=== PATIENT | female | born 1995 | race African-American/Black ===

== ENCOUNTER 2018-11-03 06:57 | Emergency (ER) | payer OTHER ==
[~2018-11-03] VITALS: Ht 160 cm; Wt 108.9 kg
[2018-11-03 07:00] VITALS: BP 132/75
[2018-11-03] MEDS ORDERED: Isovue-300 100ml vial INJ PRN (07:30)
[2018-11-03] MEDS ORDERED: Morphine Sulfate 4mg/ml Inj (IV/IM USE ONLY) IVP ONE (07:30)
[2018-11-03 07:45] LABS: BASOPHILS % (AUTO) 0.5 % (0.0-2.0); EOSINOPHILS % (AUTO) 0.7 % (0.0-3.0); HEMATOCRIT 34.6 % (37.0-47.0); HEMOGLOBIN 10.8 G/DL (12.0-16.0); LYMPHOCYTES % (AUTO) 14.4 % (20.0-45.0); MEAN CORPUSCULAR VOLUME 72 FL (80-99); MONOCYTES % (AUTO) 3.7 % (1.0-10.0); NEUTROPHILS % (AUTO) 80.8 % (45.0-75.0); PLATELET COUNT 443 K/UL (150-450); RED BLOOD COUNT 4.84 M/UL (4.20-5.40); RED CELL DISTRIBUTION WIDTH 15.9 % (11.6-14.8); WHITE BLOOD COUNT 10.1 K/UL (4.8-10.8)
[2018-11-03 07:47] LABS: APPEARANCE,URINE SLIGHTLY CLOUDY; BILIRUBIN, URINE NEGATIVE (NEGATIVE); GLUCOSE, URINE (UA) 1+ (NEGATIVE); KETONES,URINE 1+ (NEGATIVE); LEUKOCYTE ESTERASE ,URINE 3+ (NEGATIVE); NITRITE,URINE NEGATIVE (NEGATIVE); PH,URINE 6 (4.5-8.0); PROTEIN,URINE 1+ (NEGATIVE); UROBILINOGEN,URINE NORMAL MG/DL (0.0-1.0)
[2018-11-03 07:48] LABS: ANION GAP 9 mmol/L (5-15); BLOOD UREA NITROGEN 7 mg/dL (7-18); CALCIUM 9.2 MG/DL (8.5-10.1); CARBON DIOXIDE 26 MMOL/L (21-32); CHLORIDE 102 MMOL/L (98-107); CREATININE 0.9 MG/DL (0.55-1.30); POTASSIUM 3.5 MMOL/L (3.5-5.1); SODIUM 137 MMOL/L (136-145)
[2018-11-03 07:51] LABS: COLOR,URINE YELLOW
[2018-11-03 07:53] LABS: ALANINE AMINOTRANSFERASE 23 U/L (12-78); ALBUMIN 3.8 G/DL (3.4-5.0); ALBUMIN/GLOBULIN RATIO 0.9 (1.0-2.7); ALKALINE PHOSPHATASE 92 U/L (46-116); ASPARTATE AMINO TRANSFERASE 22 U/L (15-37); BILIRUBIN,TOTAL 0.8 MG/DL (0.2-1.0)
--- NOTE | 2018-11-03 08:09 | Emergency Room Report ---
History of Present Illness General Chief Complaint: Abdominal Pain Source: Patient, EMS Present Illness HPI 23-year-old female presents ED for evaluation. Patient complaining of abdominal pain with vomiting 2 days. Brought in by EMS. States pain is noted to right upper quadrant. Sharp, 10 out of 10, nonradiating. Patient states that she had her bladder removed. Denies fevers or chills. Denies chest pain shortness of breath. Denies any diarrhea. Denies sick contacts or recent travel. No other aggravating relieving factors. Denies any other associated symptoms Allergies: Coded Allergies: No Known Allergies (Unverified , 11/03/18) Patient History Past Medical History: DM Past Surgical History: none Pertinent Family History: none Social History: Denies: smoking, alcohol use, drug use Last Menstrual Period: one week ago Now: No Immunizations: UTD Reviewed Nursing Documentation: PMH: Agreed; PSxH: Agreed Nursing Documentation-PMH Hx Diabetes: Yes - TYPE 2 Review of Systems All Other Systems: negative except mentioned in HPI Physical Exam Vital Signs Date Time Temp Pulse Resp B/P (MAP) Pulse Ox O2 Delivery O2 Flow Rate FiO2 11/03/18 06:51 97.9 96 16 139/89 99 Room Air Sp02 EP Interpretation: reviewed, normal General Appearance: alert, GCS 15, non-toxic, mild distress, obese Head: normocephalic, atraumatic Eyes: bilateral eye normal inspection, bilateral eye PERRL ENT: hearing grossly normal, normal pharynx, no angioedema, normal voice Neck: full range of motion, supple/symm/no masses Respiratory: chest non-tender, lungs clear, normal breath sounds, speaking full sentences Cardiovascular #1: regular rate, rhythm, no edema Cardiovascular #2: 2+ carotid (R), 2+ carotid (L), 2+ radial (R), 2+ radial (L) , 2+ dorsalis pedis (R), 2+ dorsalis pedis (L) Gastrointestinal: normal bowel sounds, soft, non-distended, no guarding, no rebound, tenderness - RUQ Rectal: deferred Genitourinary: normal inspection, no CVA tenderness Musculoskeletal: back normal, gait/station normal, normal range of motion, non- tender Neurologic: alert, oriented x3, responsive, motor strength/tone normal, sensory intact, speech normal Psychiatric: judgement/insight normal, memory normal, mood/affect normal, no suicidal/homicidal ideation Reflexes: 3+ bicep (R), 3+ bicep (L), 3+ tricep (R), 3+ tricep (L), 3+ knee (R) , 3+ knee (L) Skin: normal color, no rash, warm/dry, well hydrated Lymphatic: no adenopathy Medical Decision Making Diagnostic Impression: Primary Impression: Abdominal pain Qualified Codes: R10.11 - Right upper quadrant pain Additional Impression: UTI (urinary tract infection) Qualified Codes: N39.0 - Urinary tract infection, site not specified ER Course Hospital Course 23 yo F presents with abd pain, vomiting Differential diagnosis includes-appendicitis, cholecystitis, small bowel obstruction, gastritis, Clinical course Patient placed on stretcher. After initial history and physical I ordered labs , IV fluids, pain medications and CT scan Labs - no leukocytosis, electrolytes ok, LFTs normal, UA + bacteria CT scan shows s/p cholecystectomy. Some CBD dilatation There is no LFT elevation. No jaundice. No clinical evidence of biliary obstruction. Status post cholecystectomy. Upon reassessment, patient states pain has improved. Given antibiotics here. Discussed findings with patient. Safe for discharge and close outpatient follow -up. We'll prescribe antibiotics, pain meds, antiemetics. Patient recommended to follow up with her surgeon as outpatient I feel this is a highly complex case requiring extensive working including EKG/ Rhythm strip, Xray/CT/US, Blood/urine lab work, repeat exams while in ED, and administration of strong opiates/narcotics for pain control, admission to hospital or close patient follow up. Diagnosis - abdominal pain, UTI Stable and discharged to home with Rx zofran, keflex, norco, zantac. Followup with PMD/surgery. Return to ED if symptoms recur or worsen Labs Test 11/03/18 07:20 White Blood Count 10.1 K/UL (4.8-10.8) Red Blood Count 4.84 M/UL (4.20-5.40) Hemoglobin 10.8 G/DL (12.0-16.0) Hematocrit 34.6 % (37.0-47.0) Mean Corpuscular Volume 72 FL (80-99) Mean Corpuscular Hemoglobin 22.3 PG (27.0-31.0) Mean Corpuscular Hemoglobin Concent 31.1 G/DL (32.0-36.0) Red Cell Distribution Width 15.9 % (11.6-14.8) Platelet Count 443 K/UL (150-450) Mean Platelet Volume 4.4 FL (6.5-10.1) Neutrophils (%) (Auto) 80.8 % (45.0-75.0) Lymphocytes (%) (Auto) 14.4 % (20.0-45.0) Monocytes (%) (Auto) 3.7 % (1.0-10.0) Eosinophils (%) (Auto) 0.7 % (0.0-3.0) Basophils (%) (Auto) 0.5 % (0.0-2.0) Urine Color Yellow Urine Appearance Slightly cloudy Urine pH 6 (4.5-8.0) Urine Specific [place] 1.015 (1.005-1.035) Urine Protein 1+ (NEGATIVE) Urine Glucose (UA) 1+ (NEGATIVE) Urine Ketones 1+ (NEGATIVE) Urine Blood Negative (NEGATIVE) Urine Nitrite Negative (NEGATIVE) Urine Bilirubin Negative (NEGATIVE) Urine Urobilinogen Normal MG/DL (0.0-1.0) Urine Leukocyte Esterase 3+ (NEGATIVE) Urine RBC 0 /HPF (0 - 2) Urine WBC 5-10 /HPF (0 - 2) Urine Squamous Epithelial Cells Moderate /LPF (NONE/OCC) Urine Bacteria Many /HPF (NONE) Urine HCG, Qualitative Negative (NEGATIVE) Sodium Level 137 MMOL/L (136-145) Potassium Level 3.5 MMOL/L (3.5-5.1) Chloride Level 102 MMOL/L (98-107) Carbon Dioxide Level 26 MMOL/L (21-32) Anion Gap 9 mmol/L (5-15) Blood Urea Nitrogen 7 mg/dL (7-18) Creatinine 0.9 MG/DL (0.55-1.30) Estimat Glomerular Filtration Rate > 60 mL/min (>60) Glucose Level 224 MG/DL (74-106) Calcium Level 9.2 MG/DL (8.5-10.1) Total Bilirubin 0.8 MG/DL (0.2-1.0) Aspartate Amino Transf (AST/SGOT) 22 U/L (15-37) Alanine Aminotransferase (ALT/SGPT) 23 U/L (12-78) Alkaline Phosphatase 92 U/L (46-116) Total Protein 8.1 G/DL (6.4-8.2) Albumin 3.8 G/DL (3.4-5.0) Globulin 4.3 g/dL Albumin/Globulin Ratio 0.9 (1.0-2.7) Lipase 120 U/L (73-393) Human Chorionic Gonadotropin, Quant 1 mIU/mL (1-6) CT/MRI/US Diagnostic Results CT/MRI/US Diagnostic Results : Imaging Test Ordered: CT A/P Impression Prior cholecystectomy Borderline dilated common bile duct, probably related to postcholecystectomy state as no downstream obstructive lesion is demonstrated. Nonetheless, correlation with liver function tests is recommended Last Vital Signs Date Time Temp Pulse Resp B/P (MAP) Pulse Ox O2 Delivery O2 Flow Rate FiO2 11/03/18 08:01 97.9 11/03/18 07:00 106 22 Room Air 11/03/18 07:00 132/75 96 Status: improved Disposition: HOME, SELF-CARE Condition: Stable Scripts Ranitidine Hcl* (ZANTAC*) 150 Mg Tablet 150 MG ORAL TWICE A DAY, #30 TAB Prov: Néstor Douglas MD 11/03/18 Cephalexin* (KEFLEX*) 500 Mg Capsule 500 MG ORAL EVERY 6 HOURS for 7 Days, CAP Prov: Néstor Douglas MD 11/03/18 Ondansetron Odt* (ZOFRAN ODT*) 4 Mg Tab.rapdis 4 MG BC EVERY 6 HOURS PRN for Nausea & Vomiting, #10 TAB 0 Refills Prov: Néstor Douglas MD 11/03/18 Hydrocodone Bit/Acetaminophen 5-325* (NORCO 5-325*) 1 Each Tablet 1 TAB ORAL Q6H PRN for For Pain, #10 TAB 0 Refills Prov: Néstor Douglas MD 11/03/18 Néstor Douglas MD Nov 03, 2018 08:09
[2018-11-03] MEDS ORDERED: cefTRIAXone 1 GM in NS 55 ML IVPB ONE (08:15)
--- NOTE | 2018-11-03 09:29 | Diagnostic Imaging Report ---
Clinical Indication: Abdominal pain, right upper quadrant, vomiting x2 days, 10 out of 10, nonradiating Technique: No oral contrast utilized, per emergency room physician request IV administration nonionic contrast. . History obtained through the abdomen and pelvis. Multiplanar reconstructions were generated. Total dose length product 1029.91 mGycm. CTDIvol(s) 19.51 mGy. Dose reduction achieved using automated exposure control Comparison: none Findings: Lack of enteric contrast limits assessment of the GI tract. The appendix is normal. No evidence of diverticulosis or diverticulitis. The distal esophagus, stomach, duodenum are unremarkable. No small bowel distention. No free or loculated intraperitoneal gas or fluid is evident. The gallbladder is surgically absent. Borderline dilated common bile duct, 7 mm. The liver, pancreas, spleen, adrenals, kidneys are unremarkable. Uterus and ovaries are unremarkable. No pelvic mass or adenopathy. No retroperitoneal or mesenteric mass or adenopathy. The included lung bases are clear. The bones are unremarkable. Impression: Somewhat limited exam, due to lack of enteric contrast administration No definite acute abnormality Prior cholecystectomy Borderline dilated common bile duct, probably related to postcholecystectomy state as no downstream obstructive lesion is demonstrated. Nonetheless, correlation with liver function tests is recommended The CT scanner at [facility] is accredited by the [employer] and the scans are performed using protocols designed to limit radiation exposure to as low as reasonably achievable to attain images of sufficient resolution adequate for diagnostic evaluation.
[2018-11-03] MEDS ORDERED: RANITIDINE HCL150 MG ORAL (09:55)
[2018-11-03] MEDS ORDERED: NORCO 5-325 TA1 EACH ORAL (09:55)
[2018-11-03] MEDS ORDERED: CEPHALEXIN500 MG ORAL (09:55)
[2018-11-03] MEDS ORDERED: ONDANSETRON ODT4 MG BC (09:55)
[2018-11-03 10:20] VITALS: BP 110/49
== END 2018-11-03 10:20 | disposition home or self-care (01) ==
LOC: EDBD 06:57 → EMR 07:36
DX: R10.11 Right upper quadrant pain (principal); N39.0 Urinary tract infection, site not specified; E11.9 Type 2 diabetes mellitus without complications; Z90.49 Acquired absence of other specified parts of digestive tract
CPT/HCPCS: 36415; 74177; 80053; 81003; 81025; 83690; 84702; 85025; 87086; 96361; 96365; 96375; 96376; 99284; J0696; J2270; J2405; Q9967; S0028

== ENCOUNTER 2018-11-08 06:56 | Emergency (ER) | payer OTHER ==
[~2018-11-08] VITALS: Ht 165.1 cm; Wt 108.9 kg
[~2018-11-08 06:56] MED LIST: CEPHALEXIN500 MG ORAL; NORCO 5-325 TA1 EACH ORAL; ONDANSETRON ODT4 MG BC; RANITIDINE HCL150 MG ORAL
[2018-11-08 07:00] VITALS: BP 151/84
--- NOTE | 2018-11-08 07:00 | NUR ---
ED Nurse Note: PT BROUGHT IN BY R826 FROM HOME. PT C/O RIGHT UPPER QUADRANT ABDOMINAL PAIN, 910 X THIS AM AROOUND 0300. PT ALSO C/O NAUSEA AND VOMITING X THIS AM AT THE SAME TIME. ACTIVE BOWEL SOUNDS IN ALL QUADRANTS. ABDOMEN IS NONDISTENDED AND NONTENDER TO PALPATION. LAST BM X THIS AM. PT DENIES DIARRHEA.
[2018-11-08] MEDS ORDERED: Morphine Sulfate 4mg/ml Inj (IV/IM USE ONLY) IVP ONE (07:15)
[2018-11-08 07:59] LABS: BASOPHILS % (AUTO) 0.3 % (0.0-2.0); EOSINOPHILS % (AUTO) 1.7 % (0.0-3.0); HEMATOCRIT 31.3 % (37.0-47.0); HEMOGLOBIN 9.8 G/DL (12.0-16.0); LYMPHOCYTES % (AUTO) 17.7 % (20.0-45.0); MEAN CORPUSCULAR VOLUME 71 FL (80-99); MONOCYTES % (AUTO) 3.9 % (1.0-10.0); NEUTROPHILS % (AUTO) 76.5 % (45.0-75.0); PLATELET COUNT 398 K/UL (150-450); RED BLOOD COUNT 4.44 M/UL (4.20-5.40); RED CELL DISTRIBUTION WIDTH 16.1 % (11.6-14.8); WHITE BLOOD COUNT 10.5 K/UL (4.8-10.8)
--- NOTE | 2018-11-08 08:05 | Emergency Room Report ---
History of Present Illness General Chief Complaint: Abdominal Pain Source: Patient Present Illness HPI 23-year-old female presents ED for evaluation. Patient brought in by EMS complaining of nausea and vomiting and abdominal pain. Started around 3 AM this morning. Pain is sharp, right upper quadrant, 8 out of 10, nonradiating. Notes multiple episodes of vomiting. Patient states she had cholecystectomy done previously. Patient was here a few days ago for similar pain. Discharged and felt better at the time. Denies fevers or chills. Denies chest pain or shortness of breath. No other aggravating relieving factors. Denies any other associated symptoms Allergies: Coded Allergies: No Known Allergies (Unverified , 11/03/18) Patient History Past Medical History: DM Past Surgical History: none Pertinent Family History: none Social History: Denies: smoking, alcohol use, drug use Last Menstrual Period: oct 21 2018 Now: No Immunizations: UTD Reviewed Nursing Documentation: PMH: Agreed; PSxH: Agreed Nursing Documentation-PMH Hx Diabetes: Yes - TYPE 2 Review of Systems All Other Systems: negative except mentioned in HPI Physical Exam Vital Signs Date Time Temp Pulse Resp B/P (MAP) Pulse Ox O2 Delivery O2 Flow Rate FiO2 11/08/18 06:58 98.1 97 18 180/105 99 Room Air Sp02 EP Interpretation: reviewed, normal General Appearance: no apparent distress, alert, GCS 15, non-toxic, obese Head: normocephalic, atraumatic Eyes: bilateral eye normal inspection, bilateral eye PERRL ENT: hearing grossly normal, normal pharynx, no angioedema, normal voice Neck: full range of motion, supple/symm/no masses Respiratory: chest non-tender, lungs clear, normal breath sounds, speaking full sentences Cardiovascular #1: regular rate, rhythm, no edema Cardiovascular #2: 2+ carotid (R), 2+ carotid (L), 2+ radial (R), 2+ radial (L) , 2+ dorsalis pedis (R), 2+ dorsalis pedis (L) Gastrointestinal: normal bowel sounds, soft, non-distended, no guarding, no rebound, tenderness - RUQ Rectal: deferred Genitourinary: normal inspection, no CVA tenderness Musculoskeletal: back normal, gait/station normal, normal range of motion, non- tender Neurologic: alert, oriented x3, responsive, motor strength/tone normal, sensory intact, speech normal Psychiatric: judgement/insight normal, memory normal, mood/affect normal, no suicidal/homicidal ideation Reflexes: 3+ bicep (R), 3+ bicep (L), 3+ tricep (R), 3+ tricep (L), 3+ knee (R) , 3+ knee (L) Skin: normal color, no rash, warm/dry, well hydrated Lymphatic: no adenopathy Medical Decision Making Diagnostic Impression: Primary Impression: Abdominal pain Qualified Codes: R10.11 - Right upper quadrant pain ER Course Hospital Course 23 yo F presents with abd pain, vomiting. s/p cholecystectomy in March 2018 Differential diagnosis includes - gastritis, pancreatitis, dehydration Clinical course Patient placed on stretcher. After initial history and physical I ordered labs , IV fluids, pain medications and ABD US Labs - no leukocytosis, electrolytes ok, LFTs normal, UA unremarkable ABD US - s/p cholecystectomy, no CBD dilatation I saw this patient end of October. Similar presentation. At the time I performed labs and CT. Labs are also unremarkable and CT was unremarkable at the time. Patient was discharged and recommended to follow-up with her surgeon as outpatient Upon reassessment, patient states pain has improved. Discussed findings with patient. States that her stomach is very "sensitive" since the surgery. I I will provide her with GI referrals. Safe for discharge or close outpatient follow-up I feel this is a highly complex case requiring extensive working including EKG/ Rhythm strip, Xray/CT/US, Blood/urine lab work, repeat exams while in ED, and administration of strong opiates/narcotics for pain control, admission to hospital or close patient follow up. Diagnosis - abdominal pain Stable and discharged to home with Rx Zantac, Zofran, Bentyl. Followup with PMD /GI. Return to ED if symptoms recur or worsen Labs Test 11/08/18 07:31 11/08/18 08:52 White Blood Count 10.5 K/UL (4.8-10.8) Red Blood Count 4.44 M/UL (4.20-5.40) Hemoglobin 9.8 G/DL (12.0-16.0) Hematocrit 31.3 % (37.0-47.0) Mean Corpuscular Volume 71 FL (80-99) Mean Corpuscular Hemoglobin 22.1 PG (27.0-31.0) Mean Corpuscular Hemoglobin Concent 31.2 G/DL (32.0-36.0) Red Cell Distribution Width 16.1 % (11.6-14.8) Platelet Count 398 K/UL (150-450) Mean Platelet Volume 4.4 FL (6.5-10.1) Neutrophils (%) (Auto) 76.5 % (45.0-75.0) Lymphocytes (%) (Auto) 17.7 % (20.0-45.0) Monocytes (%) (Auto) 3.9 % (1.0-10.0) Eosinophils (%) (Auto) 1.7 % (0.0-3.0) Basophils (%) (Auto) 0.3 % (0.0-2.0) Sodium Level 141 MMOL/L (136-145) Potassium Level 3.5 MMOL/L (3.5-5.1) Chloride Level 106 MMOL/L (98-107) Carbon Dioxide Level 25 MMOL/L (21-32) Anion Gap 10 mmol/L (5-15) Blood Urea Nitrogen 3 mg/dL (7-18) Creatinine 0.8 MG/DL (0.55-1.30) Estimat Glomerular Filtration Rate > 60 mL/min (>60) Glucose Level 203 MG/DL (74-106) Calcium Level 9.0 MG/DL (8.5-10.1) Total Bilirubin 0.8 MG/DL (0.2-1.0) Aspartate Amino Transf (AST/SGOT) 20 U/L (15-37) Alanine Aminotransferase (ALT/SGPT) 32 U/L (12-78) Alkaline Phosphatase 81 U/L (46-116) Total Protein 7.4 G/DL (6.4-8.2) Albumin 3.6 G/DL (3.4-5.0) Globulin 3.8 g/dL Albumin/Globulin Ratio 0.9 (1.0-2.7) Lipase 99 U/L (73-393) Urine Color Pale yellow Urine Appearance Clear Urine pH 8 (4.5-8.0) Urine Specific [place] 1.010 (1.005-1.035) Urine Protein Negative (NEGATIVE) Urine Glucose (UA) 2+ (NEGATIVE) Urine Ketones Negative (NEGATIVE) Urine Blood Negative (NEGATIVE) Urine Nitrite Negative (NEGATIVE) Urine Bilirubin Negative (NEGATIVE) Urine Urobilinogen Normal MG/DL (0.0-1.0) Urine Leukocyte Esterase 1+ (NEGATIVE) Urine RBC 0 /HPF (0 - 2) Urine WBC 0-2 /HPF (0 - 2) Urine Squamous Epithelial Cells Few /LPF (NONE/OCC) Urine Bacteria Occasional /HPF (NONE) Urine HCG, Qualitative Negative (NEGATIVE) CT/MRI/US Diagnostic Results CT/MRI/US Diagnostic Results : Imaging Test Ordered: ABD US Impression no CBD dilatation. unremarkable exam. s/p cholecystectomy Last Vital Signs Date Time Temp Pulse Resp B/P (MAP) Pulse Ox O2 Delivery O2 Flow Rate FiO2 11/08/18 07:00 98.4 91 13 151/84 100 Room Air Status: improved Disposition: HOME, SELF-CARE Condition: Stable Scripts Ondansetron Odt* (ZOFRAN ODT*) 4 Mg Tab.rapdis 4 MG BC EVERY 8 HOURS, #20 TAB 0 Refills Prov: Néstor Douglas MD 11/08/18 Dicyclomine Hcl* (DICYCLOMINE HCL*) 10 Mg Capsule 10 MG PO QID, #20 CAP Prov: Néstor Douglas MD 11/08/18 Ranitidine Hcl* (ZANTAC*) 150 Mg Tablet 150 MG ORAL TWICE A DAY, #30 TAB Prov: Néstor Douglas MD 11/08/18 Referrals: NON PHYSICIAN (PCP) Néstor Douglas MD Nov 08, 2018 08:05
[2018-11-08 08:14] LABS: ANION GAP 10 mmol/L (5-15); BLOOD UREA NITROGEN 3 mg/dL (7-18); CARBON DIOXIDE 25 MMOL/L (21-32); CHLORIDE 106 MMOL/L (98-107); CREATININE 0.8 MG/DL (0.55-1.30); POTASSIUM 3.5 MMOL/L (3.5-5.1); SODIUM 141 MMOL/L (136-145)
[2018-11-08 08:18] LABS: ALANINE AMINOTRANSFERASE 32 U/L (12-78); ALBUMIN 3.6 G/DL (3.4-5.0); ALBUMIN/GLOBULIN RATIO 0.9 (1.0-2.7); ALKALINE PHOSPHATASE 81 U/L (46-116); ASPARTATE AMINO TRANSFERASE 20 U/L (15-37); BILIRUBIN,TOTAL 0.8 MG/DL (0.2-1.0)
[2018-11-08 09:05] LABS: APPEARANCE,URINE CLEAR; BILIRUBIN, URINE NEGATIVE (NEGATIVE); COLOR,URINE PALE YELLOW; GLUCOSE, URINE (UA) 2+ (NEGATIVE); KETONES,URINE NEGATIVE (NEGATIVE); LEUKOCYTE ESTERASE ,URINE 1+ (NEGATIVE); NITRITE,URINE NEGATIVE (NEGATIVE); PH,URINE 8 (4.5-8.0); PROTEIN,URINE NEGATIVE (NEGATIVE); UROBILINOGEN,URINE NORMAL MG/DL (0.0-1.0)
[2018-11-08] MEDS ORDERED: ONDANSETRON ODT4 MG BC (09:20)
[2018-11-08] MEDS ORDERED: DICYCLOMINE HCL10 MG PO (09:20)
[2018-11-08] MEDS ORDERED: RANITIDINE HCL150 MG ORAL (09:20)
[2018-11-08 09:30] VITALS: BP 117/66
--- NOTE | 2018-11-08 09:32 | NUR ---
ED Nurse Note: PT LAYING PEACEFULLY IN BED IN NAD. AOX4. PRESCRIPTIONS AND DISCHARGE PAPERWORK EXPLAINED TO PT. PT VERBALIZES UNDERSTANDING AND DENIES ANY QUESTIONS AT THIS TIME. PRESCRIPTIONS AND DISCHARGE PAPERWORK GIVEN TO PT, IV AND ID WRISTBAND REMOVED. PT WALKED OUT OF ER WITH STEADY GAIT AND ALL BELONGINGS.
--- NOTE | 2018-11-08 10:11 | Diagnostic Imaging Report ---
Indication:Abdominal pain Technique: Grayscale and duplex Doppler imaging of the abdomen performed. Comparison: None Findings: The liver is unremarkable. The gallbladder is absent. CBD is between 3 and 4 mm. The study is somewhat limited as the patient could not lie supine or turn left lateral decubitus due to pain. The demonstrated part of the pancreas, aorta and IVC show no abnormalities. Both kidneys appear unremarkable. The spleen is normal in size. There is no biliary ductal dilatation identified. Doppler evaluation of the main portal vein shows patency. There is no ascites. No hydronephrosis seen. Impression: Status post cholecystectomy No acute findings. Somewhat limited exam as discussed above.
== END 2018-11-08 09:34 | disposition home or self-care (01) ==
LOC: EDUNIT# 06:56 → EDBD 06:56 → EMR 07:43
DX: R10.11 Right upper quadrant pain (principal); R11.2 Nausea with vomiting, unspecified; E11.9 Type 2 diabetes mellitus without complications; Z90.49 Acquired absence of other specified parts of digestive tract; E66.9 Obesity, unspecified; Z68.39 Body mass index [BMI] 39.0-39.9, adult
CPT/HCPCS: 36415; 76700; 80053; 81003; 81025; 83690; 85025; 96361; 96374; 96375; 96376; 99284; J2270; J2405; S0028

== ENCOUNTER 2018-12-05 05:59 | Emergency (ER) | payer OTHER ==
[~2018-12-05] VITALS: Ht 175.3 cm; Wt 94.8 kg
[~2018-12-05 05:59] MED LIST changes: +DICYCLOMINE HCL10 MG PO
[2018-12-05 06:05] VITALS: BP 112/61
--- NOTE | 2018-12-05 06:05 | NUR ---
ED Nurse Note: Patient BIBA with back pain acute onset 08/16, with h/o gastritis, DM2 and removed gall bladder.
--- NOTE | 2018-12-05 06:08 | Emergency Room Report ---
History of Present Illness General Chief Complaint: Back Pain-No Injury Source: Patient Present Illness HPI Is a 23-year-old female with history of diet-controlled diabetes. She also had her gallbladder removed already. She presents with chief complaint of acute onset of right flank and back pain. No radiation. Onset was an hour ago. Woke her from sleep. Had 2 episodes of vomiting because of the pain. Denies any fever chills. Denies any diarrhea. Also complaining of constipation for one week. No bowel movement. No relief with magnesium citrate. No hematuria, dysuria or frequency. No had this problem before. Pain is 10 out of 10 without any radiation. Allergies: Coded Allergies: No Known Allergies (Unverified , 11/03/18) Patient History Past Medical History: see triage record, old chart reviewed, DM - Diet controlled Past Surgical History: paulette Pertinent Family History: none Social History: Denies: smoking Last Menstrual Period: 11/30/18 Now: No - UNK : 2 Para: 1 Immunizations: other Reviewed Nursing Documentation: PMH: Agreed; PSxH: Agreed Nursing Documentation-PMH Past Medical History: No History, Except For Hx Diabetes: Yes - TYPE 2 Hx Gastrointestinal Problems: Yes - TAKES ZOFRAN FOR GASTRITIS Review of Systems Eye: Denies: eye pain, blurred vision ENT: Denies: ear pain, nose congestion, throat swelling Respiratory: Denies: cough, shortness of breath Cardiovascular: Denies: chest pain, palpitations Gastrointestinal: Reports: abdominal pain, constipation, nausea, vomiting; Denies: diarrhea Musculoskeletal: Denies: back pain, joint pain Skin: Denies: rash Neurological: Denies: headache, numbness Endocrine: Denies: increased thirst, increased urine Hematologic/Lymphatic: Denies: easy bruising All Other Systems: negative except mentioned in HPI Physical Exam Vital Signs Date Time Temp Pulse Resp B/P (MAP) Pulse Ox O2 Delivery O2 Flow Rate FiO2 12/05/18 05:55 98.2 100 18 154/98 100 Room Air vitals with high blood pressure Sp02 EP Interpretation: reviewed, normal General Appearance: well appearing, no apparent distress, alert Head: normocephalic, atraumatic Eyes: bilateral eye PERRL, bilateral eye EOMI ENT: hearing grossly normal, normal pharynx Neck: full range of motion, supple, no meningismus Respiratory: chest non-tender, lungs clear, normal breath sounds Cardiovascular #1: regular rate, rhythm, no murmur Gastrointestinal: normal bowel sounds, non tender, no mass, no organomegaly, no bruit, non-distended Musculoskeletal: back normal, gait/station normal, normal range of motion Neurologic: alert, oriented x3 Psychiatric: mood/affect normal Skin: warm/dry Medical Decision Making Diagnostic Impression: Primary Impression: Back pain Qualified Codes: M54.9 - Dorsalgia, unspecified Additional Impression: Constipation Qualified Codes: K59.00 - Constipation, unspecified ER Course Patient with back pain and constipation. Differential include kidney stone, lumbar strain, dissection, retained gallstone to name a few. We'll check labs, and get CT scan. I will sign this patient out to Dr. Pinzon for final disposition. Last Vital Signs Date Time Temp Pulse Resp B/P (MAP) Pulse Ox O2 Delivery O2 Flow Rate FiO2 12/05/18 05:55 98.2 100 18 154/98 100 Room Air Status: improved Kelvin Sood MD Dec 05, 2018 06:08
[2018-12-05] MEDS ORDERED: Morphine Sulfate 4mg/ml Inj (IV/IM USE ONLY) IVP ONE (06:15)
[2018-12-05] MEDS ORDERED: Ketorolac 30mg Inj IV ONE (06:15)
--- NOTE | 2018-12-05 06:20 | NUR ---
ED Nurse Note: Patient went down for CT.
[2018-12-05 06:36] LABS: ANION GAP 9 mmol/L (5-15); BLOOD UREA NITROGEN 5 mg/dL (7-18); CALCIUM 8.8 MG/DL (8.5-10.1); CARBON DIOXIDE 25 MMOL/L (21-32); CHLORIDE 107 MMOL/L (98-107); CREATININE 0.8 MG/DL (0.55-1.30); SODIUM 141 MMOL/L (136-145)
[2018-12-05 06:38] LABS: BASOPHILS % (AUTO) 1.4 % (0.0-2.0); EOSINOPHILS % (AUTO) 3.9 % (0.0-3.0); HEMATOCRIT 29.7 % (37.0-47.0); HEMOGLOBIN 9.2 G/DL (12.0-16.0); LYMPHOCYTES % (AUTO) 29.3 % (20.0-45.0); MEAN CORPUSCULAR VOLUME 70 FL (80-99); MONOCYTES % (AUTO) 7.1 % (1.0-10.0); NEUTROPHILS % (AUTO) 58.4 % (45.0-75.0); PLATELET COUNT 313 K/UL (150-450); RED BLOOD COUNT 4.23 M/UL (4.20-5.40); RED CELL DISTRIBUTION WIDTH 17.3 % (11.6-14.8); WHITE BLOOD COUNT 4.1 K/UL (4.8-10.8)
[2018-12-05 06:39] LABS: APPEARANCE,URINE CLEAR; COLOR,URINE YELLOW
[2018-12-05 06:40] LABS: ALANINE AMINOTRANSFERASE 25 U/L (12-78); ALBUMIN 3.6 G/DL (3.4-5.0); ALKALINE PHOSPHATASE 73 U/L (46-116); ASPARTATE AMINO TRANSFERASE 22 U/L (15-37); BILIRUBIN, URINE NEGATIVE (NEGATIVE); GLUCOSE, URINE (UA) NEGATIVE (NEGATIVE); KETONES,URINE NEGATIVE (NEGATIVE); NITRITE,URINE NEGATIVE (NEGATIVE); PH,URINE 8 (4.5-8.0); PROTEIN,URINE NEGATIVE (NEGATIVE)
[2018-12-05 06:41] LABS: LEUKOCYTE ESTERASE ,URINE 1+ (NEGATIVE); UROBILINOGEN,URINE NORMAL MG/DL (0.0-1.0)
[2018-12-05 06:52] VITALS: BP 112/61
--- NOTE | 2018-12-05 06:53 | NUR ---
ED Nurse Note: Patient resting comfortably with no s/s of acute distress or reports of pain. report given to Kathleen Hamilton.
--- NOTE | 2018-12-05 07:20 | NUR ---
HAND-OFF: Report given to Dejon/ TORRES for continue care.
[2018-12-05 07:47] LABS: BILIRUBIN,TOTAL 0.7 MG/DL (0.2-1.0)
[2018-12-05] MEDS ORDERED: Levofloxacin 500mg tab ORAL ONE (08:00)
[2018-12-05] MEDS ORDERED: metroNIDAZOLE 500mg tab ORAL ONE (08:00)
[2018-12-05] MEDS ORDERED: CIPROFLOXACIN500 M2 ORAL (08:04)
[2018-12-05] MEDS ORDERED: COLACE100 MG ORAL (08:04)
[2018-12-05] MEDS ORDERED: LACTULOSE20 GM/301 ORAL (08:04)
[2018-12-05] MEDS ORDERED: METRONIDAZOLE500 MG ORAL (08:04)
[2018-12-05 08:20] VITALS: BP 115/65
[2018-12-05 08:22] VITALS: BP 115/65
--- NOTE | 2018-12-05 11:53 | Diagnostic Imaging Report ---
Indication: Abdominal pain for 2 days Technique: Spiral acquisitions obtained through the abdomen and pelvis. No oral contrast utilized, per emergency room physician request No IV contrast utilized, per referring physician request.. Multiplanar reconstructions were generated. Total dose length product 1008.45 mGycm. CTDIvol(s) 19.51 mGy. Dose reduction achieved using automated exposure control Comparison: None Findings: The appendix is normal. No evidence of diverticulosis or diverticulitis. There is equivocal mild wall thickening of the distal descending and proximal sigmoid colon, which are nondistended No small bowel distention. No free or loculated intraperitoneal gas or fluid is evident. Distal esophagus, stomach, duodenum are unremarkable. Lack of IV contrast limits assessment of the solid organs. The gallbladder is surgically absent. The liver, bile ducts, pancreas, spleen, adrenals, kidneys are all unremarkable. No retroperitoneal or mesenteric mass or adenopathy. There is a section scar. No pelvic mass or adenopathy. Uterus and adnexal structures are unremarkable. The included lung bases demonstrate a 2 mm nodule in the inferior left lower lobe, image 5 of series 4, and questionably a 2 mm left lobe nodule image 9 of series 4. Impression: No definite acute abnormality Equivocal mild wall thickening of the distal descending colon and proximal sigmoid colon. Most likely an artifact of under distention, but mild colitis changes are not completely excludable Evidence of prior cholecystectomy This agrees with the preliminary interpretation provided overnight by [facility] teleradiology service. 3 mm left basilar lung nodule and possible second smaller adjacent nodule. There is no significant smoking history, no further follow-up is necessary. If there are risk factors for lung carcinoma, then short interval follow-up CT at 6-12 months is recommended.. This was discussed by phone with Dr. Pinzon at the time of interpretation The CT scanner at [facility] is accredited by the [employer] and the scans are performed using protocols designed to limit radiation exposure to as low as reasonably achievable to attain images of sufficient resolution adequate for diagnostic evaluation.
== END 2018-12-05 08:23 | disposition home or self-care (01) ==
LOC: EDBD 05:59 → EMR 07:30
DX: M54.9 Dorsalgia, unspecified (principal); R10.9 Unspecified abdominal pain; K59.00 Constipation, unspecified; E11.9 Type 2 diabetes mellitus without complications; Z90.49 Acquired absence of other specified parts of digestive tract
CPT/HCPCS: 36415; 74176; 80053; 81003; 81025; 83690; 85025; 96361; 96374; 96375; 99284; J1885; J2270; J2405